=== PATIENT | female | born 1970 | race Caucasian/White ===

== ENCOUNTER 2016-12-22 14:20 | Outpatient (CLI) | payer MEDICAID ==
[2016-12-22 14:50] LABS: BASOPHILS # (AUTO) 0.1 10^3/uL (0.0-0.1); BASOPHILS % (AUTO) 0.9 %; EOSINOPHILS # (AUTO) 0.1 10^3/uL (0.0-0.7); HCT - HEMATOCRIT 37.9 % (37.0-47.0); HGB - HEMOGLOBIN 12.6 g/dL (12.0-16.0); LYMPHOCYTES % (AUTO) 26.9 %; MEAN CORPUSCULAR HEMOGLOBIN 27.7 pg (27.0-31.0); MEAN CORPUSCULAR HGB CONC 33.3 g/dL (32.0-36.0); MEAN CORPUSCULAR VOLUME 83.1 fL (81.0-99.0); MEAN PLATELET VOLUME 8.3 fL (7.9-10.8); MONOCYTES # (AUTO) 0.7 10^3/uL (0.0-1.0); MONOCYTES % (AUTO) 9.4 %; NEUTROPHILS # (AUTO) 4.5 10^3/uL (1.5-6.6); NEUTROPHILS % (AUTO) 61.8 %; RED BLOOD COUNT 4.55 10^6/uL (4.20-5.40); RED CELL DISTRIBUTION WIDTH 15.9 % (12.0-15.0); UNCORRECTED WHITE BLOOD COUNT 7.3 x10^3/uL; WHITE BLOOD COUNT 7.3 x10^3/uL (4.8-10.8)
[2016-12-22 15:06] LABS: HEMOGLOBIN A1C 1.53 g/dL
[2016-12-22 15:07] LABS: ALBUMIN/GLOBULIN RATIO 1.1 (1.0-2.2); BILIRUBIN,TOTAL 0.3 mg/dL (0.2-1.0); BUN - BLOOD UREA NITROGEN 7 mg/dL (6-20); CALCIUM 9.4 mg/dL (8.5-10.3); CARBON DIOXIDE - CO2 27 mmol/L (21-32); CHLORIDE 93 mmol/L (101-111); CHOL/HDL RATIO 4.8 (<4.4); CHOLESTEROL 270 mg/dL; CREATININE 0.7 mg/dL (0.4-1.0); GFR - MDRD 90 (>89); GLUCOSE 283 mg/dL (70-100); HDL CHOLESTEROL 56 mg/dL; POTASSIUM 3.9 mmol/L (3.5-5.0); SODIUM 131 mmol/L (135-145); TOTAL PROTEIN 7.9 g/dL (6.7-8.2); TRIGLYCERIDES 231 mg/dL; VLDL CHOLESTEROL 46 mg/dL
[2016-12-22 15:58] LABS: THYROID STIMULATING HORMONE 1.19 uIU/mL (0.34-5.60)
== END 2016-12-22 14:21 | disposition home or self-care (01) ==
LOC: LAB 14:20
PROVIDERS: ATTEND Nurse Practitioner Family
DX: R63.1 Polydipsia (principal); R03.0 Elevated blood-pressure reading, without diagnosis of hypertension; R42 Dizziness and giddiness; H53.8 Other visual disturbances
CPT/HCPCS: 36415; 80053; 80061; 82607; 83036; 84443; 85025

== ENCOUNTER 2017-06-04 08:00 | Outpatient (CLI) | payer MEDICAID ==
[2017-06-05 11:35] LABS: ALBUMIN 3.7 g/dL (3.2-5.5); ALBUMIN/GLOBULIN RATIO 1.1 (1.0-2.2); BILIRUBIN,TOTAL 0.3 mg/dL (0.2-1.0); CALCIUM 9.4 mg/dL (8.5-10.3); CREATININE 0.6 mg/dL (0.4-1.0); TOTAL PROTEIN 7.1 g/dL (6.7-8.2)
[2017-06-05 11:42] LABS: HB2 TOTAL 13.4 g/dL; HEMOGLOBIN A1C 0.76 g/dL; HEMOGLOBIN A1C % 7.3 % (4.6-6.2)
== END 2017-06-04 08:01 | disposition home or self-care (01) ==
LOC: LAB.S 08:00
PROVIDERS: ATTEND Nurse Practitioner Family
DX: E11.9 Type 2 diabetes mellitus without complications (principal); E67.2 Megavitamin-B6 syndrome
CPT/HCPCS: 36415; 80053; 82607; 83036

== ENCOUNTER 2017-07-09 08:00 | Outpatient (CLI) | payer MEDICAID ==
[2017-07-09 18:12] LABS: AMYLASE 80 U/L (28-100); LIPASE 26 U/L (22-51)
== END 2017-07-09 23:59 ==
LOC: LAB.S 08:00
PROVIDERS: ATTEND Nurse Practitioner Family
DX: R10.12 Left upper quadrant pain (principal)
CPT/HCPCS: 36415; 82150; 83690

== ENCOUNTER 2017-08-06 08:11 | Outpatient (CLI) | payer MEDICAID ==
--- NOTE | 2017-08-06 10:57 | Ultrasound Report ---
COMPLETE ABDOMINAL ULTRASOUND: 08/06/2017 CLINICAL INDICATION: Pain. TECHNIQUE: Real-time scanning was performed with rental representative static images obtained. FINDINGS: The liver measures 16.5 cm. Hepatic echogenicity is normal. No intrahepatic biliary dilatation or focal parenchymal lesion is present. The common bile duct measures 5 mm. The gallbladder is normal, as is the visualized pancreas. The kidneys are normal, with the right measuring 10.5 cm, and the left measuring 10.3 cm. The spleen measures 11.4 cm, and demonstrates normal echotexture. The abdominal aorta is normal in caliber. The inferior vena cava is unremarkable. No free fluid is present. IMPRESSION: NORMAL ABDOMINAL ULTRASOUND. TD: 08/06/2017 10:51
== END 2017-08-06 08:12 | disposition home or self-care (01) ==
LOC: DI 08:11
PROVIDERS: ATTEND Nurse Practitioner Family
DX: R10.12 Left upper quadrant pain (principal)
CPT/HCPCS: 76700

== ENCOUNTER 2017-10-15 13:23 | Outpatient (CLI) | payer MEDICAID ==
[2017-10-15 18:59] LABS: HB2 TOTAL 13.2 g/dL; HEMOGLOBIN A1C 0.61 g/dL; HEMOGLOBIN A1C % 6.4 % (4.6-6.2)
[2017-10-15 19:32] LABS: ALBUMIN 4.1 g/dL (3.2-5.5); ALBUMIN/GLOBULIN RATIO 1.2 (1.0-2.2); ALKALINE PHOSPHATASE 57 IU/L (42-121); ALT ALANINE AMINOTRANSFERASE 16 IU/L (10-60); AST ASPARTATE AMINOTRANSFERASE 19 IU/L (10-42); BILIRUBIN,TOTAL 0.5 mg/dL (0.2-1.0); BUN - BLOOD UREA NITROGEN 10 mg/dL (6-20); CALCIUM 9.2 mg/dL (8.5-10.3); CARBON DIOXIDE - CO2 29 mmol/L (21-32); CHLORIDE 99 mmol/L (101-111); CREATININE 0.6 mg/dL (0.4-1.0); GFR - MDRD 108 (>89); GLUCOSE 68 mg/dL (70-100); SODIUM 137 mmol/L (135-145); TOTAL PROTEIN 7.5 g/dL (6.7-8.2)
== END 2017-10-15 13:24 | disposition home or self-care (01) ==
LOC: LAB.S 13:23
PROVIDERS: ATTEND Nurse Practitioner Family
DX: E11.9 Type 2 diabetes mellitus without complications (principal)
CPT/HCPCS: 36415; 80053; 80061; 82043; 83036; 83721; 84443

== ENCOUNTER 2017-12-07 09:54 | Emergency (ER) | payer MEDICAID ==
[2017-12-07] MEDS ORDERED: SODIUM CHLORIDE 0.9% 1,000 ML IV ONE (10:33)
[2017-12-07 10:53] LABS: BASOPHILS # (AUTO) 0.1 10^3/uL (0.0-0.1); BASOPHILS % (AUTO) 1.3 %; EOSINOPHILS # (AUTO) 0.2 10^3/uL (0.0-0.7); EOSINOPHILS % (AUTO) 2.5 %; HGB - HEMOGLOBIN 13.9 g/dL (12.0-16.0); LYMPHOCYTES # (AUTO) 2.5 10^3/uL (1.5-3.5); LYMPHOCYTES % (AUTO) 26.7 %; MEAN CORPUSCULAR HEMOGLOBIN 27.4 pg (27.0-31.0); MEAN CORPUSCULAR HGB CONC 33.7 g/dL (32.0-36.0); MEAN CORPUSCULAR VOLUME 81.4 fL (81.0-99.0); MEAN PLATELET VOLUME 8.1 fL (7.9-10.8); MONOCYTES # (AUTO) 0.8 10^3/uL (0.0-1.0); MONOCYTES % (AUTO) 8.2 %; NEUTROPHILS # (AUTO) 5.7 10^3/uL (1.5-6.6); NEUTROPHILS % (AUTO) 61.3 %; PLT - PLATELET COUNT 329 10^3/uL (130-450); RED BLOOD COUNT 5.06 10^6/uL (4.20-5.40); RED CELL DISTRIBUTION WIDTH 16.5 % (12.0-15.0); WHITE BLOOD COUNT 9.4 x10^3/uL (4.8-10.8)
[2017-12-07 11:08] LABS: ACETAMINOPHEN < 10 ug/mL (10-30); ALBUMIN/GLOBULIN RATIO 1.1 (1.0-2.2); ALKALINE PHOSPHATASE 67 IU/L (42-121); ALT ALANINE AMINOTRANSFERASE 25 IU/L (10-60); AST ASPARTATE AMINOTRANSFERASE 24 IU/L (10-42); BILIRUBIN,TOTAL 0.4 mg/dL (0.2-1.0); BUN - BLOOD UREA NITROGEN 12 mg/dL (6-20); CALCIUM 9.1 mg/dL (8.5-10.3); CARBON DIOXIDE - CO2 26 mmol/L (21-32); CHLORIDE 102 mmol/L (101-111); CREATININE 0.5 mg/dL (0.4-1.0); GFR - MDRD 133 (>89); GLUCOSE 128 mg/dL (70-100); LIPASE 33 U/L (22-51); SALICYLATE < 6.0 mg/dL; SODIUM 136 mmol/L (135-145); TOTAL PROTEIN 7.5 g/dL (6.7-8.2)
[2017-12-07 11:15] LABS: HCG,QUALITATIVE BLOOD NEGATIVE
[2017-12-07 11:53] LABS: BILIRUBIN,URINE NEGATIVE (NEGATIVE); GLUCOSE, URINE (UA) NEGATIVE (NEGATIVE); KETONES,URINE (UA) NEGATIVE (NEGATIVE); LEUKOCYTE ESTERASE, URINE NEGATIVE (NEGATIVE); MUDS CUTOFF CONCENTRATIONS CUTOFF CONC BELOW:; NITRITE,URINE NEGATIVE (NEGATIVE); OCCULT BLOOD,URINE NEGATIVE (NEGATIVE); PH,URINE 6.5 PH (5.0-7.5); PROTEIN,URINE NEGATIVE (NEGATIVE); UROBILINOGEN,URINE 0.2 (NORMAL) E.U./dL (NORMAL)
[2017-12-07 11:54] LABS: CLARITY,URINE CLEAR (CLEAR)
[2017-12-07 12:03] LABS: AMPHETAMINE SCREEN,URINE NEGATIVE (NEGATIVE); BENZODIAZEPINES SCREEN, URINE NEGATIVE (NEGATIVE); COCAINE SCREEN URINE NEGATIVE (NEGATIVE); METHADONE SCREEN, URINE NEGATIVE (NEGATIVE); METHAMPHETAMINES SCREEN, URINE NEGATIVE (NEGATIVE); OPIATE SCREEN, URINE NEGATIVE (NEGATIVE); OXYCODONE SCREEN, URINE NEGATIVE (NEGATIVE); PROPOXYPHENE SCREEN, URINE NEGATIVE (NEGATIVE); TRICYCLIC ANTIDEPRESSANT,URINE NEGATIVE (NEGATIVE)
--- NOTE | 2017-12-07 12:06 | ED Physician Documentation ---
History of Present Illness - Stated complaint Stated Complaint: MHE - Chief complaint Chief Complaint: MHE - Additonal information Additional information: hx from pt 47 female brought over by [facility] counselor after telepsych eval at office states suicidal tried to kill herself with insulin OD several days ago and cut her L wrist today also voice wanting to kill a coworker - she states just under her breath pt understands she was brought over with plan to be hospitalized she denies fever cough NVD denies hallucinations Review of Systems Constitutional: denies: Fever, Chills Cardiac: denies: Chest pain / pressure Respiratory: denies: Dyspnea GI: denies: Abdominal Pain Skin: reports: Laceration (s) Psychiatric: reports: Depressed, Suicidal, Homicidal. denies: Hallucinations, Delusions Endocrine: denies: Easy bruising / bleeding Immunocompromised: denies: Immunocompromised PD PAST MEDICAL HISTORY - Past Medical History Cardiovascular: None Respiratory: None Endocrine/Autoimmune: Type 2 diabetes GI: None, Other : Incontinence, Nocturia HEENT: None Psych: Depression, Anxiety Musculoskeletal: Fibromyalgia Derm: None - Past Surgical History Past Surgical History: Yes General: Appendectomy - Present Medications Home Medications: Ambulatory Orders Medication Instructions Recorded Confirmed Clonazepam 1 mg PO TID 09/28/12 01/15/17 Divalproex Sodium [Depakote] 500 mg PO BID 05/22/14 01/15/17 Venlafaxine [Effexor] 500 mg PO BID 11/10/14 01/15/17 Omeprazole 20 mg PO DAILY 01/15/17 01/15/17 metFORMIN [Glucophage] 500 mg PO BID 01/15/17 01/15/17 Insulin Glargine [Lantus Solostar] 20 unit SUBQ QDBREAKFAST 07/23/17 07/23/17 Pregabalin [Lyrica] 1 tab PO TID 12/07/17 12/07/17 - Allergies Allergies/Adverse Reactions: Allergies Allergy/AdvReac Type Severity Reaction Status Date / Time tramadol Allergy Mild itch Verified 12/07/17 10:11 - Social History Does the pt smoke?: Yes Smoking Status: Current every day smoker Does the pt drink ETOH?: No Does the pt have substance abuse?: No - Immunizations Immunizations are current?: No Immunizations: TDAP >10years/unknown - POLST Patient has POLST: No PD ED PE NORMAL - Vitals Vital signs reviewed: Yes - Neck Neck: Supple, no meningeal sign - Cardiac Cardiac: RRR - Respiratory Respiratory: No respiratory distress, Clear bilaterally - Abdomen Abdomen: Soft, Non tender - Extremities Extremities: Other (linear lac ant surface mid L wrist, MSV intact, slow ooze, non arterial) - Neuro Neuro: Alert and oriented X 3 - Psych Psych: Other (depressed and suicidal) Results - Vitals Vitals: Vital Signs - 24 hr 12/07/17 12/07/17 12/07/17 10:04 12:17 14:00 Temperature 36.5 C 98.2 C H Heart Rate 122 H 118 H 108 H Respiratory 16 20 Rate Blood Pressure 137/105 H 129/78 118/81 H O2 Saturation 97 98 97 12/07/17 12/07/17 15:57 19:01 Temperature Heart Rate 102 H 87 Respiratory Rate Blood Pressure O2 Saturation 98 98 Oxygen O2 Source Room air - EKG (time done) 1058 Rate: Rate (enter#) (114) Rhythm: Sinus tachycardia Intervals: Normal [place] Ischemia: Normal ST segments - Labs Labs: Laboratory Tests 12/07/17 12/07/17 12/07/17 10:40 10:48 10:48 WBC 9.4 RBC 5.06 Hgb 13.9 Hct 41.2 MCV 81.4 MCH 27.4 MCHC 33.7 RDW 16.5 H Plt Count 329 MPV 8.1 Neut # (Auto) 5.7 Lymph # (Auto) 2.5 [place] # (Auto) 0.8 Eos # (Auto) 0.2 Baso # (Auto) 0.1 Absolute Nucleated RBC 0.00 Nucleated RBC % 0.0 Sodium Potassium Chloride Carbon Dioxide Anion Gap BUN Creatinine Estimated GFR (MDRD) Glucose Calcium Total Bilirubin AST ALT Alkaline Phosphatase Total Protein Albumin Globulin Albumin/Globulin Ratio Lipase TSH Serum HCG, Qual NEGATIVE Urine Color Urine Clarity Urine pH Ur Specific [place] Urine Protein Urine Glucose (UA) Urine Ketones Urine Occult Blood Urine Nitrite Urine Bilirubin Urine Urobilinogen Ur Leukocyte Esterase Ur Microscopic Review Urine Culture Comments Salicylates Urine Opiates Screen Ur Oxycodone Screen Urine Methadone Screen Ur Propoxyphene Screen Acetaminophen Ur Barbiturates Screen Valproic Acid 65.7 Ur Tricyclics Screen Ur Phencyclidine Scrn Ur Amphetamine Screen U Methamphetamines Scrn U Benzodiazepines Scrn Urine Cocaine Screen U Cannabinoids Screen Ethyl Alcohol 12/07/17 12/07/17 12/07/17 10:48 10:48 11:35 WBC RBC Hgb Hct MCV MCH MCHC RDW Plt Count MPV Neut # (Auto) Lymph # (Auto) [place] # (Auto) Eos # (Auto) Baso # (Auto) Absolute Nucleated RBC Nucleated RBC % Sodium 136 Potassium 4.2 Chloride 102 Carbon Dioxide 26 Anion Gap 8.0 BUN 12 Creatinine 0.5 Estimated GFR (MDRD) 133 Glucose 128 H Calcium 9.1 Total Bilirubin 0.4 AST 24 ALT 25 Alkaline Phosphatase 67 Total Protein 7.5 Albumin 4.0 Globulin 3.5 Albumin/Globulin Ratio 1.1 Lipase 33 TSH 1.80 Serum HCG, Qual Urine Color YELLOW Urine Clarity CLEAR Urine pH 6.5 Ur Specific [place] 1.010 Urine Protein NEGATIVE Urine Glucose (UA) NEGATIVE Urine Ketones NEGATIVE Urine Occult Blood NEGATIVE Urine Nitrite NEGATIVE Urine Bilirubin NEGATIVE Urine Urobilinogen 0.2 (NORMAL) Ur Leukocyte Esterase NEGATIVE Ur Microscopic Review NOT INDICATED Urine Culture Comments NOT INDICATED Salicylates < 6.0 Urine Opiates Screen NEGATIVE Ur Oxycodone Screen NEGATIVE Urine Methadone Screen NEGATIVE Ur Propoxyphene Screen NEGATIVE Acetaminophen < 10 L Ur Barbiturates Screen NEGATIVE Valproic Acid Ur Tricyclics Screen NEGATIVE Ur Phencyclidine Scrn NEGATIVE Ur Amphetamine Screen NEGATIVE U Methamphetamines Scrn NEGATIVE U Benzodiazepines Scrn NEGATIVE Urine Cocaine Screen NEGATIVE U Cannabinoids Screen NEGATIVE Ethyl Alcohol < 5.0 PD MEDICAL DECISION MAKING - ED course ED course: labs back, HR coming down wound superficial and just needs a steri strip noon pt medically clear awaiting SW eval 4 PM - [facility] has not seen pt and states their shift is over after much effort obtained [facility] provider note from today but never got the telepsych note so will need to rpt telepscych since SW gone and receiving facilities want a MHE by [facility] or telepscyh turned over to mid shift Dr noble for results of telpsych and placement pt understand she was sent to be admitted, she is cooperative, and so at this time is voluntary - Sepsis Event Vital Signs: Vital Signs - 24 hr 12/07/17 12/07/17 12/07/17 10:04 12:17 14:00 Temperature 36.5 C 98.2 C H Heart Rate 122 H 118 H 108 H Respiratory 16 20 Rate Blood Pressure 137/105 H 129/78 118/81 H O2 Saturation 97 98 97 12/07/17 12/07/17 15:57 19:01 Temperature Heart Rate 102 H 87 Respiratory Rate Blood Pressure O2 Saturation 98 98 Oxygen O2 Source Room air Departure - Departure Clinical Impression: Suicidal ideation, Laceration - injury, Self-harming behavior Drug overdose Qualifiers: Encounter type: initial encounter Injury intent: intentional self-harm Qualified Code(s): T50.902A - Poisoning by unspecified drugs, medicaments and biological substances, intentional self-harm, initial encounter
[2017-12-07 19:33] LABS: VALPROIC ACID (DEPAKOTE) 65.7 ug/mL
--- NOTE | 2017-12-07 21:33 | TELEPSYCH PHYS NOTE ---
Telepsych Note - CHIEF COMPLAINT/HX OF PRESENT ILLNESS Cheif Complaint and History of Present Illness: Chief Complaint: "Jennifer been really upset." HPI: The patient is a 47-year-old female with a history of depression. After attempting suicide a few days ago. The patient tried to overdose on insulin. She reports several stressors including financial difficulties, problems with coworkers, and difficulty moving out of her mother's home. The patient reports that the last straw for her was when she learned that her job had decreased her hours which will make it more difficult for her to save up to move out. She continues report suicidal thoughts. She is been experiencing poor sleep, poor appetite, and feelings of hopelessness. - SI/HI/SELF HARM SI/HI/SELF HARM (CURRENT OR HISTORY OF):: SI - VIOLENCE/LEGAL/COLLATERAL Violence - Legal - Collateral: Violence: none Legal: none Collateral: n/a - PSYCHIATRIC HX/TREATMENT HX Psychiatric: Depression, Anxiety Psychiatric/Treatment Hx Other: Past Psychiatric History: One prior inpatient admission in 2013 after dad passed. Current outpatient treatment-Dr. Ap Sanchez (private psychiatrist). 2 prior suicide attempts. - DRUG/ALCOHOL HX Substance use/abuse/alcohol text: Alcohol-sober 5 years - MEDICAL HX Does the pt have a hx of MRSA?: No Eyes, Ears, Nose, Throat: None Cardiovascular: None Respiratory: None Skin: None Endocrine/Autoimmune: Type 2 diabetes Gastrointestinal: None, Other Is Patient ?: No Urinary: Incontinence, Nocturia Musculoskeletal: Fibromyalgia Blood Disorders: None - SURGICAL HX General: Appendectomy - HOME MEDICATIONS Home Meds (as last confirmed): Patient History Medication Instructions Recorded Confirmed Clonazepam 1 mg PO TID 09/28/12 01/15/17 Divalproex Sodium [Depakote] 500 mg PO BID 05/22/14 01/15/17 Venlafaxine [Effexor] 500 mg PO BID 11/10/14 01/15/17 Omeprazole 20 mg PO DAILY 01/15/17 01/15/17 metFORMIN [Glucophage] 500 mg PO BID 01/15/17 01/15/17 Insulin Glargine [Lantus Solostar] 20 unit SUBQ QDBREAKFAST 07/23/17 07/23/17 Pregabalin [Lyrica] 1 tab PO TID 12/07/17 12/07/17 - ALLERGIES Allergies (as last confirmed): Allergies Allergy/AdvReac Type Severity Reaction Status Date / Time tramadol Allergy Mild itch Verified 12/07/17 10:11 - FAMILY PSYCH/SUICIDE/SOCIAL HX-MENTAL Family - Suicide - Social Hx and Mental Status Exam: Family Psychiatric History: adopted Social History: single, lives with mother and 31 yo brother 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 [employer] Education: HS grad, college grad Stressors: see HPI History: none Abuse: none Mental Status Examination: Attitude and behavior: cooperative Speech: WNL Affect and mood: sad affect and mood Association and thought processes: disorganized Thought content: no delusions, + SI, no HI Perception: no hallucinations Sensorium, memory, and orientation: AAOx3 Intellectual functioning: average Insight and judgment: poor - PATIENT PROBLEM LIST (1) Major depressive disorder, recurrent severe without psychotic features Impression: The patient is a 47-year-old female with a history of Depressive. She is currently unstable with depressed mood and SI. Patient is not safe for discharge. Refer to inpatient care. Patient is agreeable to inpatient care. - TREATMENT/PHARMACOLOGICAL RECOMMENDATION Treatment - Pharmacological - Therapy Recommendations: Treatment Recommendations: Admit to inpatient care, start medications Pharmacological: continue psych meds Therapy: supportive Level of Care: inpatient - TIME SPENT & PROVIDER LOCATION Telepsych consultation conducted via videoconferencing: Yes List names and roles of persons who participated in consult: Gm Dwyer MD- psychiatrist Telepsych Provider Location: [place] Time Telepsych consult began: 22:50 Time Telepsych consult completed: 23:10
[2017-12-08] MEDS ORDERED: metFORMIN 500 MG TABLET PO STA (08:31)
[2017-12-08] MEDS ORDERED: clonazePAM 0.5 MG TABLET PO STA (08:33)
[2017-12-08] MEDS ORDERED: PREGABALIN 25 MG CAPSULE PO STA (08:34)
[2017-12-08 08:35] VITALS: BP 117/81
[2017-12-08] MEDS ORDERED: VENLAFAXINE 37.5 MG TABLET PO STA (08:35)
[2017-12-08] MEDS ORDERED: INSULIN GLARGINE 300 UNIT/3 ML PEN SUBQ SCH (09:00)
--- NOTE | 2017-12-08 09:12 | ED Physician Documentation ---
History of Present Illness - Stated complaint Stated Complaint: MHE - Chief complaint Chief Complaint: MHE PD PAST MEDICAL HISTORY - Past Medical History Cardiovascular: None Respiratory: None Endocrine/Autoimmune: Type 2 diabetes GI: None, Other : Incontinence, Nocturia HEENT: None Psych: Depression, Anxiety Musculoskeletal: Fibromyalgia Derm: None - Past Surgical History Past Surgical History: Yes General: Appendectomy - Present Medications Home Medications: Ambulatory Orders Medication Instructions Recorded Confirmed RX: Clonazepam 1 mg PO TID 09/28/12 01/15/17 Divalproex Sodium [Depakote] 500 mg PO BID 05/22/14 01/15/17 RX: Venlafaxine [Effexor] 500 mg PO BID 11/10/14 01/15/17 RX: Omeprazole 20 mg PO DAILY 01/15/17 01/15/17 metFORMIN [Glucophage] 500 mg PO BID 01/15/17 01/15/17 Insulin Glargine [Lantus Solostar] 20 unit SUBQ QDBREAKFAST 07/23/17 07/23/17 Pregabalin [Lyrica] 1 tab PO TID 12/07/17 12/07/17 - Allergies Allergies/Adverse Reactions: Allergies Allergy/AdvReac Type Severity Reaction Status Date / Time tramadol Allergy Mild itch Verified 12/07/17 10:11 - Social History Does the pt smoke?: Yes Smoking Status: Current every day smoker Does the pt drink ETOH?: No Does the pt have substance abuse?: No - Immunizations Immunizations are current?: No Immunizations: TDAP >10years/unknown - POLST Patient has POLST: No Results - Vitals Vitals: Vital Signs - 24 hr 12/07/17 12/08/17 12/08/17 21:38 04:16 06:21 Temperature Heart Rate 89 Respiratory 16 14 13 Rate Blood Pressure 117/85 H O2 Saturation 95 12/08/17 08:35 Temperature 36.4 C L Heart Rate 94 Respiratory 17 Rate Blood Pressure 117/81 H O2 Saturation 99 Oxygen O2 Source Room air - Labs Labs: Laboratory Tests 12/07/17 12/07/17 12/07/17 10:40 10:48 10:48 WBC 9.4 RBC 5.06 Hgb 13.9 Hct 41.2 MCV 81.4 MCH 27.4 MCHC 33.7 RDW 16.5 H Plt Count 329 MPV 8.1 Neut # (Auto) 5.7 Lymph # (Auto) 2.5 [place] # (Auto) 0.8 Eos # (Auto) 0.2 Baso # (Auto) 0.1 Absolute Nucleated RBC 0.00 Nucleated RBC % 0.0 Sodium Potassium Chloride Carbon Dioxide Anion Gap BUN Creatinine Estimated GFR (MDRD) Glucose POC Whole Bld Glucose Calcium Total Bilirubin AST ALT Alkaline Phosphatase Total Protein Albumin Globulin Albumin/Globulin Ratio Lipase TSH Serum HCG, Qual NEGATIVE Urine Color Urine Clarity Urine pH Ur Specific [place] Urine Protein Urine Glucose (UA) Urine Ketones Urine Occult Blood Urine Nitrite Urine Bilirubin Urine Urobilinogen Ur Leukocyte Esterase Ur Microscopic Review Urine Culture Comments Last Dose Date UNKNOWN Last Dose Time UNKNOWN Salicylates Urine Opiates Screen Ur Oxycodone Screen Urine Methadone Screen Ur Propoxyphene Screen Acetaminophen Ur Barbiturates Screen Valproic Acid 65.7 Ur Tricyclics Screen Ur Phencyclidine Scrn Ur Amphetamine Screen U Methamphetamines Scrn U Benzodiazepines Scrn Urine Cocaine Screen U Cannabinoids Screen Ethyl Alcohol 12/07/17 12/07/17 12/07/17 10:48 10:48 11:35 WBC RBC Hgb Hct MCV MCH MCHC RDW Plt Count MPV Neut # (Auto) Lymph # (Auto) [place] # (Auto) Eos # (Auto) Baso # (Auto) Absolute Nucleated RBC Nucleated RBC % Sodium 136 Potassium 4.2 Chloride 102 Carbon Dioxide 26 Anion Gap 8.0 BUN 12 Creatinine 0.5 Estimated GFR (MDRD) 133 Glucose 128 H POC Whole Bld Glucose Calcium 9.1 Total Bilirubin 0.4 AST 24 ALT 25 Alkaline Phosphatase 67 Total Protein 7.5 Albumin 4.0 Globulin 3.5 Albumin/Globulin Ratio 1.1 Lipase 33 TSH 1.80 Serum HCG, Qual Urine Color YELLOW Urine Clarity CLEAR Urine pH 6.5 Ur Specific [place] 1.010 Urine Protein NEGATIVE Urine Glucose (UA) NEGATIVE Urine Ketones NEGATIVE Urine Occult Blood NEGATIVE Urine Nitrite NEGATIVE Urine Bilirubin NEGATIVE Urine Urobilinogen 0.2 (NORMAL) Ur Leukocyte Esterase NEGATIVE Ur Microscopic Review NOT INDICATED Urine Culture Comments NOT INDICATED Last Dose Date Last Dose Time Salicylates < 6.0 Urine Opiates Screen NEGATIVE Ur Oxycodone Screen NEGATIVE Urine Methadone Screen NEGATIVE Ur Propoxyphene Screen NEGATIVE Acetaminophen < 10 L Ur Barbiturates Screen NEGATIVE Valproic Acid Ur Tricyclics Screen NEGATIVE Ur Phencyclidine Scrn NEGATIVE Ur Amphetamine Screen NEGATIVE U Methamphetamines Scrn NEGATIVE U Benzodiazepines Scrn NEGATIVE Urine Cocaine Screen NEGATIVE U Cannabinoids Screen NEGATIVE Ethyl Alcohol < 5.0 12/08/17 12/08/17 08:30 12:23 WBC RBC Hgb Hct MCV MCH MCHC RDW Plt Count MPV Neut # (Auto) Lymph # (Auto) [place] # (Auto) Eos # (Auto) Baso # (Auto) Absolute Nucleated RBC Nucleated RBC % Sodium Potassium Chloride Carbon Dioxide Anion Gap BUN Creatinine Estimated GFR (MDRD) Glucose POC Whole Bld Glucose 160 H 113 H Calcium Total Bilirubin AST ALT Alkaline Phosphatase Total Protein Albumin Globulin Albumin/Globulin Ratio Lipase TSH Serum HCG, Qual Urine Color Urine Clarity Urine pH Ur Specific [place] Urine Protein Urine Glucose (UA) Urine Ketones Urine Occult Blood Urine Nitrite Urine Bilirubin Urine Urobilinogen Ur Leukocyte Esterase Ur Microscopic Review Urine Culture Comments Last Dose Date Last Dose Time Salicylates Urine Opiates Screen Ur Oxycodone Screen Urine Methadone Screen Ur Propoxyphene Screen Acetaminophen Ur Barbiturates Screen Valproic Acid Ur Tricyclics Screen Ur Phencyclidine Scrn Ur Amphetamine Screen U Methamphetamines Scrn U Benzodiazepines Scrn Urine Cocaine Screen U Cannabinoids Screen Ethyl Alcohol PD MEDICAL DECISION MAKING - ED course ED course: resumed care 7 AM 12/08 pt had another telepsych inpt care rec pt voluntary placed by plant operator/shift supervisor nursing at [facility] EMS arrnaged per turn over [facility] req Medicaid auth and [facility] is working on that process - see [facility] notes pt daily meds (that are formulary) ordered no acute events - Sepsis Event Vital Signs: Vital Signs - 24 hr 12/07/17 12/08/17 12/08/17 21:38 04:16 06:21 Temperature Heart Rate 89 Respiratory 16 14 13 Rate Blood Pressure 117/85 H O2 Saturation 95 12/08/17 08:35 Temperature 36.4 C L Heart Rate 94 Respiratory 17 Rate Blood Pressure 117/81 H O2 Saturation 99 Oxygen O2 Source Room air Departure - Departure Disposition: 65 Psych Hosp/Unit DC/Xfer Clinical Impression: Suicidal ideation, Laceration - injury, Self-harming behavior, Drug overdose Discharge Date/Time: 12/08/17 13:10
== END 2017-12-08 13:10 ==
LOC: ED 09:54
DX: T14.91XA Suicide attempt, initial encounter (principal); T38.3X2A Poisoning by insulin and oral hypoglycemic [antidiabetic] drugs, intentional self-harm, initial encounter; S61.512A Laceration without foreign body of left wrist, initial encounter; F32.9 Major depressive disorder, single episode, unspecified; X78.9XXA Intentional self-harm by unspecified sharp object, initial encounter; E11.9 Type 2 diabetes mellitus without complications; R00.0 Tachycardia, unspecified; F17.200 Nicotine dependence, unspecified, uncomplicated; Z79.4 Long term (current) use of insulin; Z91.5 Personal history of self-harm; F10.21 Alcohol dependence, in remission
CPT/HCPCS: 36415; 80053; 80164; 80306; 80307; 80320; 80329; 81003; 83690; 84443; 84703; 85025; 93005; 99284; 99285; A9270; G0425; J1815; Q3014; 81001; 87086

== ENCOUNTER 2018-01-10 12:30 | Outpatient (CLI) | payer MEDICAID ==
--- NOTE | 2018-01-11 10:16 | XRAY Report ---
Reason: FOOT JOINT PAIN,LEFT Procedure Date: 01/10/2018 Accession Number: [id number] / [id number] Procedure: XR - Foot 3 View LT CPT Code: FULL RESULT: EXAM: LEFT FOOT RADIOGRAPHY EXAM DATE: 01/10/2018 01:17 PM. CLINICAL HISTORY: Left foot pain. Rolled foot 14 days ago. Complaining of pain lateral side of foot. COMPARISON: 08/01/2013. TECHNIQUE: 3 views. FINDINGS: Bones: No acute fracture or bony lesion. Bipartite lateral sesamoid again seen. No bony erosions or periosteal reaction. Small plantar calcaneal spur again seen. Well corticated calcification on the tip of the fibula unchanged likely the result of prior trauma or accessory ossicle. Joints: Mild degenerative changes of the left first MTP and left midfoot. No dislocation. Soft Tissues: Normal. No soft tissue swelling. IMPRESSION: 1. No acute osseous abnormalities. RADIA
== END 2018-01-10 12:31 | disposition home or self-care (01) ==
LOC: DI 12:30
PROVIDERS: ATTEND Nurse Practitioner Family
DX: M79.672 Pain in left foot (principal)

== ENCOUNTER 2018-01-21 09:18 | Outpatient (CLI) | payer MEDICAID ==
[2018-01-21 18:24] LABS: BASOPHILS # (AUTO) 0.1 10^3/uL (0.0-0.1); BASOPHILS % (AUTO) 0.7 %; EOSINOPHILS # (AUTO) 0.1 10^3/uL (0.0-0.7); EOSINOPHILS % (AUTO) 1.8 %; HGB - HEMOGLOBIN 13.4 g/dL (12.0-16.0); LYMPHOCYTES % (AUTO) 27.6 %; MEAN CORPUSCULAR HEMOGLOBIN 27.3 pg (27.0-31.0); MEAN CORPUSCULAR HGB CONC 32.6 g/dL (32.0-36.0); MEAN CORPUSCULAR VOLUME 83.8 fL (81.0-99.0); MONOCYTES # (AUTO) 0.6 10^3/uL (0.0-1.0); MONOCYTES % (AUTO) 8.3 %; NEUTROPHILS # (AUTO) 4.4 10^3/uL (1.5-6.6); NEUTROPHILS % (AUTO) 61.6 %; PLT - PLATELET COUNT 334 10^3/uL (130-450); RED BLOOD COUNT 4.89 10^6/uL (4.20-5.40); RED CELL DISTRIBUTION WIDTH 16.7 % (12.0-15.0); WHITE BLOOD COUNT 7.2 x10^3/uL (4.8-10.8)
[2018-01-21 19:09] LABS: BUN - BLOOD UREA NITROGEN 15 mg/dL (6-20); CARBON DIOXIDE - CO2 27 mmol/L (21-32); CHLORIDE 104 mmol/L (101-111); CHOL/HDL RATIO 5.4 (<4.4); CHOLESTEROL 233 mg/dL; CREATININE 0.5 mg/dL (0.4-1.0); GFR - MDRD 133 (>89); GLUCOSE 101 mg/dL (70-100); HDL CHOLESTEROL 43 mg/dL; LDL CHOLESTEROL,CALCULATED 155 mg/dL; LDL/HDL RATIO 3.6 (<4.4); SODIUM 138 mmol/L (135-145); VLDL CHOLESTEROL 35 mg/dL
[2018-01-21 19:36] LABS: HB2 TOTAL 13.8 g/dL; HEMOGLOBIN A1C 0.64 g/dL; HEMOGLOBIN A1C % 6.4 % (4.6-6.2)
== END 2018-01-21 09:19 | disposition home or self-care (01) ==
LOC: LAB.F 09:18
PROVIDERS: ATTEND Nurse Practitioner Family
DX: E11.9 Type 2 diabetes mellitus without complications (principal); E78.5 Hyperlipidemia, unspecified
CPT/HCPCS: 36415; 80048; 80061; 83036; 83721; 85025

== ENCOUNTER 2018-06-17 08:00 | Outpatient (CLI) | payer MEDICAID ==
[2018-06-17 18:24] LABS: BUN - BLOOD UREA NITROGEN 13 mg/dL (6-20); CALCIUM 9.2 mg/dL (8.5-10.3); CARBON DIOXIDE - CO2 25 mmol/L (21-32); CHLORIDE 104 mmol/L (101-111); CHOL/HDL RATIO 4.9 (<4.4); CHOLESTEROL 217 mg/dL; CREATININE 0.5 mg/dL (0.4-1.0); GFR - MDRD 133 (>89); GLUCOSE 166 mg/dL (70-100); HDL CHOLESTEROL 44 mg/dL; LDL CHOLESTEROL,CALCULATED 146 mg/dL; LDL/HDL RATIO 3.3 (<4.4); SODIUM 137 mmol/L (135-145); VLDL CHOLESTEROL 27 mg/dL
[2018-06-17 18:59] LABS: HB2 TOTAL 12.8 g/dL; HEMOGLOBIN A1C 0.79 g/dL; HEMOGLOBIN A1C % 7.8 % (4.6-6.2)
== END 2018-06-17 23:59 | disposition home or self-care (01) ==
LOC: LAB.S 08:00
PROVIDERS: ATTEND Nurse Practitioner
DX: E11.9 Type 2 diabetes mellitus without complications (principal)
CPT/HCPCS: 36415; 80048; 80061; 83036; 83721

== ENCOUNTER 2019-01-21 13:47 | Outpatient (CLI) | payer MEDICAID ==
[2019-01-21 17:41] LABS: HB2 TOTAL 11.9 g/dL; HEMOGLOBIN A1C 0.61 g/dL; HEMOGLOBIN A1C % 6.8 % (4.6-6.2)
[2019-01-21 17:51] LABS: CREATININE,URINE 104.7 mg/dL; MICROALBUM/CREATININE RATIO,UR 12.4 ug/mg (<30.0); MICROALBUMIN,URINE 1.3 mg/dL (0-300.0)
== END 2019-01-21 13:48 | disposition home or self-care (01) ==
LOC: LAB.S 13:47
PROVIDERS: ATTEND Registered Nurse
DX: E11.9 Type 2 diabetes mellitus without complications (principal)
CPT/HCPCS: 36415; 82043; 82570; 83036

== ENCOUNTER 2019-05-10 13:14 | Emergency (ER) | payer MEDICAID ==
--- NOTE | 2019-05-10 14:20 | XRAY Report ---
Reason: cough Procedure Date: 05/10/2019 Accession Number: [id number] / [id number] Procedure: XR - Chest 2 View X-Ray CPT Code: 46859 Final Report FULL RESULT: EXAM: CHEST RADIOGRAPHY EXAM DATE: 05/10/2019 01:56 PM. CLINICAL HISTORY: Cough. COMPARISON: 04/21/2014 radiograph. TECHNIQUE: 2 views. FINDINGS: Lungs/Pleura: No focal opacities evident. No pleural effusion. No pneumothorax. Normal volumes. Mediastinum: Heart size is normal. Arterial calcifications indicate atherosclerosis. Other: None. IMPRESSION: No acute findings. RADIA
[2019-05-10] MEDS ORDERED: IPRATROPIUM/ALBUTEROL 3 ML NEB INH STA (16:25)
--- NOTE | 2019-05-10 16:25 | ED Physician Documentation ---
PD HPI DYSPNEA - Stated complaint Stated Complaint: SOA - Chief complaint Chief Complaint: Resp - History obtained from History obtained from: Patient, Family - History of Present Illness Timing - onset: How many days ago (5) Timing - onset during: Rest Timing - duration: Days (5), Weeks Timing - details: Gradual onset, Still present Inciting event(s): Allergic rxn/anaphylaxis Improved by: Inhaler/neb, Steroids Worsened by: Exertion, Coughing Associated symptoms: Cough, Wheezing. No: Fever, Hemoptysis, Chest pain / discomfort Similar symptoms before: Diagnosis (asthma) Recently seen: Not recently seen Review of Systems Constitutional: denies: Fever Eyes: denies: Decreased vision Ears: denies: Ear pain Nose: denies: Rhinorrhea / runny nose, Congestion Throat: denies: Sore throat Cardiac: denies: Chest pain / pressure, Palpitations Respiratory: reports: Dyspnea, Cough, Wheezing GI: denies: Abdominal Pain, Nausea, Vomiting : denies: Dysuria, Frequency Skin: denies: Rash Musculoskeletal: denies: Neck pain, Back pain, Extremity pain Neurologic: denies: Generalized weakness, Focal weakness, Numbness PD PAST MEDICAL HISTORY - Past Medical History Cardiovascular: None Respiratory: Asthma Endocrine/Autoimmune: Type 2 diabetes GI: None, Other : Incontinence, Nocturia HEENT: None Psych: Depression, Anxiety Musculoskeletal: Fibromyalgia Derm: None - Past Surgical History Past Surgical History: Yes General: Appendectomy - Present Medications Home Medications: Ambulatory Orders Medication Instructions Recorded Confirmed Clonazepam 1 mg PO TID 09/28/12 01/15/17 Divalproex Sodium [Depakote] 500 mg PO BID 05/22/14 01/15/17 Venlafaxine [Effexor] 500 mg PO BID 11/10/14 01/15/17 Omeprazole 20 mg PO DAILY 01/15/17 01/15/17 metFORMIN [Glucophage] 500 mg PO BID 01/15/17 01/15/17 Insulin Glargine [Lantus Solostar] 20 unit SUBQ QDBREAKFAST 07/23/17 07/23/17 Pregabalin [Lyrica] 1 tab PO TID 12/07/17 12/07/17 Albuterol 2.5 mg INH Q4H PRN #30 neb 05/10/19 Azithromycin [Zithromax] 250 mg PO DAILY #6 tablet 05/10/19 Fluconazole [Diflucan] 150 mg PO ONCE #1 tablet 05/10/19 predniSONE [Deltasone] 10 mg PO ONCE #26 tablet 05/10/19 - Allergies Allergies/Adverse Reactions: Allergies Allergy/AdvReac Type Severity Reaction Status Date / Time tramadol Allergy Mild itch Verified 05/10/19 13:35 - Social History Does the pt smoke?: Yes Smoking Status: Current every day smoker Does the pt drink ETOH?: Yes Does the pt have substance abuse?: No - Immunizations Immunizations are current?: No Immunizations: TDAP >10years/unknown - POLST Patient has POLST: No PD ED PE NORMAL - Vitals Vital signs reviewed: Yes (tachy and hypertensive) - General General: Alert and oriented X 3, Well developed/nourished, Other (looks tachyneic at rest with pursed lips ) - HEENT HEENT: Atraumatic, PERRL - Neck Neck: Supple, no meningeal sign, No bony TTP - Cardiac Cardiac: RRR, No murmur - Respiratory Respiratory: Other (Tachypneic at rest with diminished breath sounds and scattered wheezes.) - Abdomen Abdomen: Soft - Back Back: No CVA TTP, No spinal TTP - Derm Derm: Normal color, Warm and dry, No rash - Extremities Extremities: No deformity, No edema - Neuro Neuro: Alert and oriented X 3, offset second press operator 2-12 intact, No motor deficit, No sensory deficit, Normal speech Eye Opening: Spontaneous Motor: Obeys Commands Verbal: Oriented GCS Score: 15 - Psych Psych: Normal mood, Normal affect Results - Vitals Vitals: Vital Signs - 24 hr 05/10/19 05/10/19 13:35 16:42 Temperature 36.6 C Heart Rate 125 H 118 H Respiratory 18 18 Rate Blood Pressure 171/118 H O2 Saturation 98 Oxygen O2 Source Room air - Rads (name of study) chest Radiology: Prelim report reviewed (IMPRESSION: No acute findings. ), EMP read indepedently, See rad report PD MEDICAL DECISION MAKING - ED course Complexity details: reviewed results, re-evaluated patient, considered differential, d/w patient, d/w family ED course: 48-year-old female with history of persistent asthma has an asthma exacerbation she has not improved with 2 days of prednisone at 30mg daily. She likely needs a much stronger dose of prednisone and she is given a DuoNeb treatment here in the emergency department and we will start her on a regimen of 60/day for 2 days followed by 40,20 and 10. Departure - Departure Disposition: 01 Home, Self Care Clinical Impression: Asthma exacerbation Qualifiers: Asthma severity: moderate Asthma persistence: persistent Qualified Code(s): J45.41 - Moderate persistent asthma with (acute) exacerbation Condition: Stable Instructions: ED Bronchitis Asthmatic Follow-Up: Mya Carroll ARNP [Primary Care Provider] - Prescriptions: Albuterol 2.5 mg INH Q4H PRN #30 neb PRN Reason: Wheezing Azithromycin [Zithromax] 250 mg PO DAILY #6 tablet Fluconazole [Diflucan] 150 mg PO ONCE #1 tablet predniSONE [Deltasone] 10 mg PO ONCE #26 tablet Forms: Activity restrictions
[2019-05-10 16:55] VITALS: BP 179/103
== END 2019-05-10 16:54 | disposition home or self-care (01) ==
LOC: ED 13:14
DX: J45.41 Moderate persistent asthma with (acute) exacerbation (principal); F17.200 Nicotine dependence, unspecified, uncomplicated; E11.9 Type 2 diabetes mellitus without complications; M79.7 Fibromyalgia; F32.9 Major depressive disorder, single episode, unspecified; F41.9 Anxiety disorder, unspecified; R32 Unspecified urinary incontinence; R35.1 Nocturia; Z79.4 Long term (current) use of insulin; Z79.51 Long term (current) use of inhaled steroids; Z79.52 Long term (current) use of systemic steroids
CPT/HCPCS: 71046; 94640; 99283; 99284

== ENCOUNTER 2019-06-08 23:49 | Outpatient (CLI) | payer MEDICAID | END 2019-06-08 23:50 | disposition critical access hospital (66) | LOC: EMS 23:49 | PROVIDERS: ATTEND Surgery | DX: R45.851 Suicidal ideations (principal) | CPT/HCPCS: A0425; A0429; A0999 ==

== ENCOUNTER 2019-06-09 00:26 | Emergency (ER) | payer MEDICAID ==
--- NOTE | 2019-06-09 00:33 | ED Physician Documentation ---
<СергейgeraldKonrad - Last Filed: 06/09/19 06:42> History of Present Illness - Stated complaint Stated Complaint: ETOH, SI - History obtained from History obtained from: Patient (the patient is a 48 y/o f who presents involuntarily via ems for suicidal behavior and alcohol intoxication. patient has been more depressed and had plans to commit suicide tonight.) Review of Systems Unable to obtain: Intoxicated PD PAST MEDICAL HISTORY - Past Medical History Cardiovascular: None Respiratory: Asthma Endocrine/Autoimmune: Type 2 diabetes GI: None, Other : Incontinence, Nocturia HEENT: None Psych: Depression, Anxiety Musculoskeletal: Fibromyalgia Derm: None - Past Surgical History Past Surgical History: Yes General: Appendectomy - Present Medications Home Medications: Ambulatory Orders Medication Instructions Recorded Confirmed Clonazepam 1 mg PO TID 09/28/12 01/15/17 Divalproex Sodium [Depakote] 500 mg PO BID 05/22/14 01/15/17 Venlafaxine [Effexor] 500 mg PO BID 11/10/14 01/15/17 Omeprazole 20 mg PO DAILY 01/15/17 01/15/17 metFORMIN [Glucophage] 500 mg PO BID 01/15/17 01/15/17 Insulin Glargine [Lantus Solostar] 20 unit SUBQ QDBREAKFAST 07/23/17 07/23/17 Pregabalin [Lyrica] 1 tab PO TID 12/07/17 12/07/17 Albuterol 2.5 mg INH Q4H PRN #30 neb 05/10/19 Azithromycin [Zithromax] 250 mg PO DAILY #6 tablet 05/10/19 Fluconazole [Diflucan] 150 mg PO ONCE #1 tablet 05/10/19 predniSONE [Deltasone] 10 mg PO ONCE #26 tablet 05/10/19 - Allergies Allergies/Adverse Reactions: Allergies Allergy/AdvReac Type Severity Reaction Status Date / Time tramadol Allergy Mild itch Verified 05/10/19 13:35 - Social History Does the pt smoke?: Yes Smoking Status: Current every day smoker Does the pt drink ETOH?: Yes Does the pt have substance abuse?: No - Immunizations Immunizations are current?: No Immunizations: TDAP >10years/unknown - POLST Patient has POLST: No PD ED PE NORMAL - Vitals Vital signs reviewed: Yes - General General: Alert and oriented X 3, No acute distress - HEENT HEENT: PERRL - Neck Neck: Supple, no meningeal sign - Cardiac Cardiac: RRR, No murmur - Respiratory Respiratory: Clear bilaterally - Abdomen Abdomen: Normal bowel sounds, Soft, Non tender, Non distended - Derm Derm: Warm and dry - Extremities Extremities: No deformity - Neuro Neuro: Alert and oriented X 3 - Psych Psych: Other (depressed, flat affect, intoxicated.) Results - EKG (time done) 00:57 Rate: Other (no stemi) PD MEDICAL DECISION MAKING - ED course Complexity details: re-evaluated patient (06:43 patient revaluated. clinically sober, DMHP consulted for intermediate as patient is involuntary. ), considered differential (etoh intoxication, suicidal behavior, plan is for medical clearance and DMHP evaluation), other (07:00 patient signed out at shift change to dr. lilly peña.) Departure - Departure Disposition: 01 Home, Self Care Clinical Impression: Suicidal ideation Alcoholic intoxication Qualifiers: Complication of substance-induced condition: with unspecified complication Qualified Code(s): F10.929 - Alcohol use, unspecified with intoxication, unspecified Condition: Stable Instructions: ED Alcohol Intoxication Follow-Up: Mya Carroll ARNP [Primary Care Provider] - Comments: Keep the arranged follow-up with [facility] on Sunday at 4 PM. They should also call and check on you tomorrow. Stop drinking. Return to the emergency department if you are having thoughts of harming yourself. <Lilly Peña - Last Filed: 06/09/19 13:48> Results - Vitals Vitals: Vital Signs - 24 hr 06/09/19 06/09/19 06/09/19 00:36 00:38 07:37 Temperature 36.4 C L 36.8 C Heart Rate 99 98 107 H Respiratory 20 16 Rate Blood Pressure 130/80 143/83 H O2 Saturation 98 98 96 Oxygen O2 Source Room air - Labs Labs: Laboratory Tests 06/09/19 06/09/19 06/09/19 00:30 00:30 01:40 WBC RBC Hgb Hct MCV MCH MCHC RDW Plt Count MPV Neut # (Auto) Lymph # (Auto) [place] # (Auto) Eos # (Auto) Baso # (Auto) Absolute Nucleated RBC Nucleated RBC % Sodium 143 Potassium 3.1 L Chloride 105 Carbon Dioxide 24 Anion Gap 14.0 H BUN 9 Creatinine 0.7 Estimated GFR (MDRD) 90 Glucose 98 Calcium 9.0 Total Bilirubin 0.6 AST 28 ALT 27 Alkaline Phosphatase 64 Total Protein 7.3 Albumin 4.4 Globulin 2.9 Albumin/Globulin Ratio 1.5 Lipase 27 TSH Urine Color YELLOW Urine Clarity CLEAR Urine pH 6.0 Ur Specific [place] <=1.005 Urine Protein NEGATIVE Urine Glucose (UA) NEGATIVE Urine Ketones NEGATIVE Urine Occult Blood NEGATIVE Urine Nitrite NEGATIVE Urine Bilirubin NEGATIVE Urine Urobilinogen 0.2 (NORMAL) Ur Leukocyte Esterase NEGATIVE Ur Microscopic Review NOT INDICATED Urine Culture Comments NOT INDICATED Urine HCG, Qual NEGATIVE Salicylates < 6.0 Urine Opiates Screen NEGATIVE Ur Oxycodone Screen NEGATIVE Urine Methadone Screen NEGATIVE Ur Propoxyphene Screen NEGATIVE Acetaminophen < 10 L Ur Barbiturates Screen NEGATIVE Ur Tricyclics Screen NEGATIVE Ur Phencyclidine Scrn NEGATIVE Ur Amphetamine Screen NEGATIVE U Methamphetamines Scrn NEGATIVE U Benzodiazepines Scrn NEGATIVE Urine Cocaine Screen NEGATIVE U Cannabinoids Screen NEGATIVE Ethyl Alcohol 209.9 06/09/19 06/09/19 06/09/19 01:40 01:40 06:30 WBC 7.1 RBC 4.73 Hgb 13.0 Hct 40.5 MCV 85.6 MCH 27.5 MCHC 32.1 RDW 15.5 H Plt Count 386 MPV 9.8 Neut # (Auto) 4.3 Lymph # (Auto) 2.1 [place] # (Auto) 0.5 Eos # (Auto) 0.1 Baso # (Auto) 0.1 Absolute Nucleated RBC 0.00 Nucleated RBC % 0.0 Sodium Potassium Chloride Carbon Dioxide Anion Gap BUN Creatinine Estimated GFR (MDRD) Glucose Calcium Total Bilirubin AST ALT Alkaline Phosphatase Total Protein Albumin Globulin Albumin/Globulin Ratio Lipase TSH 0.96 Urine Color Urine Clarity Urine pH Ur Specific [place] Urine Protein Urine Glucose (UA) Urine Ketones Urine Occult Blood Urine Nitrite Urine Bilirubin Urine Urobilinogen Ur Leukocyte Esterase Ur Microscopic Review Urine Culture Comments Urine HCG, Qual Salicylates Urine Opiates Screen Ur Oxycodone Screen Urine Methadone Screen Ur Propoxyphene Screen Acetaminophen Ur Barbiturates Screen Ur Tricyclics Screen Ur Phencyclidine Scrn Ur Amphetamine Screen U Methamphetamines Scrn U Benzodiazepines Scrn Urine Cocaine Screen U Cannabinoids Screen Ethyl Alcohol 48.5 PD MEDICAL DECISION MAKING - ED course ED course: Care was turned over to me to follow-up after evaluation by the social work faculty member or crisis screener. The patient was no longer intoxicated. She was seen by the social work faculty member at length andSocial worker interviewed both the patient and the patient's mother whom she lives with. They have agreed on a safety plan and the social work faculty member feels strongly that her suicidal thoughts were related to her alcohol consumption last night. Patient herself says that she is no longer feeling suicidal. She feels safe going home. She has outpatient mental health follow-up in place.Mom has agreed to come to the emergency department and collect the patient.
[2019-06-09 01:07] LABS: MUDS CUTOFF CONCENTRATIONS CUTOFF CONC BELOW:
[2019-06-09 01:10] LABS: BILIRUBIN,URINE NEGATIVE (NEGATIVE); GLUCOSE, URINE (UA) NEGATIVE (NEGATIVE); KETONES,URINE (UA) NEGATIVE (NEGATIVE); LEUKOCYTE ESTERASE, URINE NEGATIVE (NEGATIVE); NITRITE,URINE NEGATIVE (NEGATIVE); OCCULT BLOOD,URINE NEGATIVE (NEGATIVE); PROTEIN,URINE NEGATIVE (NEGATIVE); UROBILINOGEN,URINE 0.2 (NORMAL) E.U./dL (NORMAL)
[2019-06-09 01:11] LABS: CLARITY,URINE CLEAR (CLEAR); HCG UR QUAL NEGATIVE
[2019-06-09 01:24] LABS: AMPHETAMINE SCREEN,URINE NEGATIVE (NEGATIVE); BENZODIAZEPINES SCREEN, URINE NEGATIVE (NEGATIVE); COCAINE SCREEN URINE NEGATIVE (NEGATIVE); METHADONE SCREEN, URINE NEGATIVE (NEGATIVE); METHAMPHETAMINES SCREEN, URINE NEGATIVE (NEGATIVE); OPIATE SCREEN, URINE NEGATIVE (NEGATIVE); OXYCODONE SCREEN, URINE NEGATIVE (NEGATIVE); PROPOXYPHENE SCREEN, URINE NEGATIVE (NEGATIVE); TRICYCLIC ANTIDEPRESSANT,URINE NEGATIVE (NEGATIVE)
[2019-06-09 01:54] LABS: BASOPHILS # (AUTO) 0.1 10^3/uL (0.0-0.1); BASOPHILS % (AUTO) 1.1 %; EOSINOPHILS # (AUTO) 0.1 10^3/uL (0.0-0.7); EOSINOPHILS % (AUTO) 1.7 %; LYMPHOCYTES # (AUTO) 2.1 10^3/uL (1.5-3.5); MEAN CORPUSCULAR HEMOGLOBIN 27.5 pg (27.0-31.0); MEAN CORPUSCULAR HGB CONC 32.1 g/dL (32.0-36.0); MEAN CORPUSCULAR VOLUME 85.6 fL (81.0-99.0); MEAN PLATELET VOLUME 9.8 fL (7.9-10.8); MONOCYTES # (AUTO) 0.5 10^3/uL (0.0-1.0); MONOCYTES % (AUTO) 7.3 %; NEUTROPHILS # (AUTO) 4.3 10^3/uL (1.5-6.6); NEUTROPHILS % (AUTO) 60.5 %; PLT - PLATELET COUNT 386 10^3/uL (130-450); RED BLOOD COUNT 4.73 10^6/uL (4.20-5.40); RED CELL DISTRIBUTION WIDTH 15.5 % (12.0-15.0); WHITE BLOOD COUNT 7.1 x10^3/uL (4.8-10.8)
[2019-06-09 02:06] LABS: ACETAMINOPHEN < 10 ug/mL (10-30); ALBUMIN 4.4 g/dL (3.2-5.5); ALBUMIN/GLOBULIN RATIO 1.5 (1.0-2.2); ALKALINE PHOSPHATASE 64 IU/L (42-121); ALT ALANINE AMINOTRANSFERASE 27 IU/L (10-60); AST ASPARTATE AMINOTRANSFERASE 28 IU/L (10-42); BILIRUBIN,TOTAL 0.6 mg/dL (0.2-1.0); BUN - BLOOD UREA NITROGEN 9 mg/dL (6-20); CARBON DIOXIDE - CO2 24 mmol/L (21-32); CHLORIDE 105 mmol/L (101-111); CREATININE 0.7 mg/dL (0.4-1.0); GLUCOSE 98 mg/dL (70-100); LIPASE 27 U/L (22-51); SALICYLATE < 6.0 mg/dL; SODIUM 143 mmol/L (135-145); TOTAL PROTEIN 7.3 g/dL (6.7-8.2)
[2019-06-09 13:45] VITALS: BP 149/91
== END 2019-06-09 16:19 | disposition home or self-care (01) ==
LOC: EDUNIT# → ED 00:26
DX: R45.851 Suicidal ideations (principal); F10.129 Alcohol abuse with intoxication, unspecified; E11.9 Type 2 diabetes mellitus without complications; F17.200 Nicotine dependence, unspecified, uncomplicated; Z79.4 Long term (current) use of insulin
CPT/HCPCS: 36415; 80048; 80053; 80306; 80307; 80320; 80329; 81001; 81003; 81025; 83690; 84443; 85025; 87086; 93005; 99281; 99284

== ENCOUNTER 2019-06-13 10:49 | Outpatient (CLI) | payer MEDICAID ==
--- NOTE | 2019-06-14 10:07 | XRAY Report ---
Reason: TOE PAIN,RT Procedure Date: 06/13/2019 Accession Number: [id number] / [id number] Procedure: XR - Toe(s) RT CPT Code: Final Report FULL RESULT: EXAM: RIGHT TOE RADIOGRAPHY EXAM DATE: 06/13/2019 11:00 AM. CLINICAL HISTORY: Right fourth toe pain. Stubbed 3 weeks ago. COMPARISON: None. TECHNIQUE: 3 views. FINDINGS: Bones: There is an oblique, extra-articular fracture of the neck of the fourth proximal phalanx with mild lateral displacement. Joints: Normal. No subluxations. Soft Tissues: Normal. No soft tissue swelling. IMPRESSION: Fracture of the proximal phalanx of the fourth digit. RADIA
== END 2019-06-13 10:50 | disposition home or self-care (01) ==
LOC: DI 10:49
PROVIDERS: ATTEND Physician Assistant
DX: S92.511A Displaced fracture of proximal phalanx of right lesser toe(s), initial encounter for closed fracture (principal)
CPT/HCPCS: 73660

== ENCOUNTER 2019-08-08 14:39 | Outpatient (CLI) | payer MEDICAID ==
[2019-08-08 15:00] LABS: CALCIUM 9.1 mg/dL (8.5-10.3); CREATININE 0.6 mg/dL (0.4-1.0)
[2019-08-08 15:08] LABS: CREATININE,URINE 158.5 mg/dL; MICROALBUM/CREATININE RATIO,UR 8.2 ug/mg (<30.0); MICROALBUMIN,URINE 1.3 mg/dL (0-300.0)
[2019-08-08 15:24] LABS: HB2 TOTAL 13.6 g/dL; HEMOGLOBIN A1C 0.71 g/dL; HEMOGLOBIN A1C % 6.9 % (4.6-6.2)
== END 2019-08-08 14:40 | disposition home or self-care (01) ==
LOC: LAB 14:39
PROVIDERS: ATTEND Registered Nurse
DX: E11.9 Type 2 diabetes mellitus without complications (principal)
CPT/HCPCS: 36415; 80048; 82043; 82570; 83036

== ENCOUNTER 2020-01-13 14:18 | Outpatient (CLI) | payer MEDICAID ==
[2020-01-13 20:07] LABS: CALCIUM 9.4 mg/dL (8.5-10.3); CREATININE 0.7 mg/dL (0.4-1.0)
[2020-01-13 20:14] LABS: CREATININE,URINE 61.7 mg/dL; MICROALBUM/CREATININE RATIO,UR 9.7 ug/mg (<30.0); MICROALBUMIN,URINE 0.6 mg/dL (0-300.0)
[2020-01-13 20:19] LABS: HEMOGLOBIN A1c% 6.4 % (4.27-6.07)
== END 2020-01-13 14:19 | disposition home or self-care (01) ==
LOC: LAB.S 14:18
PROVIDERS: ATTEND Physician Assistant
DX: E16.2 Hypoglycemia, unspecified (principal); E11.9 Type 2 diabetes mellitus without complications; E78.5 Hyperlipidemia, unspecified
CPT/HCPCS: 36415; 80048; 82043; 82570; 83036

== ENCOUNTER 2020-05-27 10:50 | Outpatient (CLI) | payer MEDICAID ==
[2020-05-27 17:03] LABS: CALCIUM 9.3 mg/dL (8.5-10.3); CREATININE 0.8 mg/dL (0.4-1.0)
[2020-05-27 17:31] LABS: MICROALBUM/CREATININE RATIO,UR 4.9 ug/mg (<30.0); MICROALBUMIN,URINE 0.4 mg/dL (0-300.0)
[2020-05-27 20:21] LABS: ESTIMATED AVERAGE GLUCOSE 143 mg/dL (70-100); HEMOGLOBIN A1c% 6.6 % (4.27-6.07)
== END 2020-05-27 10:51 | disposition home or self-care (01) ==
LOC: LAB.S 10:50
PROVIDERS: ATTEND Physician Assistant
DX: E11.9 Type 2 diabetes mellitus without complications (principal)
CPT/HCPCS: 36415; 80048; 82043; 82570; 83036

== ENCOUNTER 2020-06-18 23:31 | Emergency (ER) | payer MEDICAID ==
[2020-06-19 00:03] VITALS: BP 90/61
== END 2020-06-19 00:03 | disposition left against medical advice (07) ==
LOC: ED 23:31
DX: Z53.21 Procedure and treatment not carried out due to patient leaving prior to being seen by health care provider (principal)

== ENCOUNTER 2020-07-06 15:09 | Outpatient (CLI) | payer MEDICAID ==
[2020-07-06 15:54] LABS: BASOPHILS # (AUTO) 0.1 10^3/uL (0.0-0.1); BASOPHILS % (AUTO) 1.1 %; EOSINOPHILS # (AUTO) 0.2 10^3/uL (0.0-0.7); EOSINOPHILS % (AUTO) 3.1 %; HCT - HEMATOCRIT 39.5 % (37.0-47.0); HGB - HEMOGLOBIN 12.7 g/dL (12.0-16.0); LYMPHOCYTES # (AUTO) 1.9 10^3/uL (1.5-3.5); LYMPHOCYTES % (AUTO) 27.7 %; MEAN CORPUSCULAR HGB CONC 32.2 g/dL (32.0-36.0); MEAN CORPUSCULAR VOLUME 93.4 fL (81.0-99.0); MEAN PLATELET VOLUME 9.4 fL (7.9-10.8); MONOCYTES # (AUTO) 0.6 10^3/uL (0.0-1.0); NEUTROPHILS # (AUTO) 4.1 10^3/uL (1.5-6.6); NEUTROPHILS % (AUTO) 58.8 %; PLT - PLATELET COUNT 346 10^3/uL (130-450); RED BLOOD COUNT 4.23 10^6/uL (4.20-5.40)
[2020-07-06 16:06] LABS: ALBUMIN 4.2 g/dL (3.2-5.5); ALBUMIN/GLOBULIN RATIO 1.5 (1.0-2.2); BILIRUBIN,TOTAL 0.2 mg/dL (0.2-1.0); CALCIUM 9.3 mg/dL (8.5-10.3); CREATININE 0.4 mg/dL (0.4-1.0); POTASSIUM 3.9 mmol/L (3.5-5.0)
[2020-07-06 16:22] LABS: BILIRUBIN,URINE NEGATIVE (NEGATIVE); CLARITY,URINE CLEAR (CLEAR); GLUCOSE, URINE (UA) NEGATIVE (NEGATIVE); KETONES,URINE (UA) TRACE mg/dL (NEGATIVE); LEUKOCYTE ESTERASE, URINE NEGATIVE (NEGATIVE); NITRITE,URINE NEGATIVE (NEGATIVE); OCCULT BLOOD,URINE NEGATIVE (NEGATIVE); PH,URINE 5.5 PH (5.0-7.5); PROTEIN,URINE NEGATIVE (NEGATIVE); UROBILINOGEN,URINE 0.2 (NORMAL) E.U./dL (NORMAL)
[2020-07-06 16:32] LABS: BACTERIA,URINE None Seen /HPF (None Seen); CRYSTALS,URINE 3-5 Calcium Oxalate /LPF; RBC,URINE None Seen /HPF (0-5); SQUAMOUS EPITHELIAL CELL,UR FEW Squamous (<= Few); WBC,URINE 0-3 /HPF (0-5)
[2020-07-06 19:47] LABS: ESTIMATED AVERAGE GLUCOSE 143 mg/dL (70-100); HEMOGLOBIN A1c% 6.6 % (4.27-6.07)
== END 2020-07-06 15:10 | disposition home or self-care (01) ==
LOC: LAB 15:09
PROVIDERS: ATTEND Physician Assistant
DX: I10 Essential (primary) hypertension (principal); R10.11 Right upper quadrant pain; R10.13 Epigastric pain; E11.9 Type 2 diabetes mellitus without complications; E78.5 Hyperlipidemia, unspecified; K44.9 Diaphragmatic hernia without obstruction or gangrene
CPT/HCPCS: 36415; 80053; 81001; 82150; 83036; 83690; 85025; 87086

== ENCOUNTER 2020-07-19 08:03 | Outpatient (CLI) | payer MEDICAID ==
--- NOTE | 2020-07-19 11:40 | Ultrasound Report ---
PROCEDURE: Abdomen Limited INDICATIONS: RUQ ABD PAIN TECHNIQUE: Real-time focused scanning was performed of the abdomen, with image documentation. COMPARISON: Abdominal ultrasound 08/06/2017 FINDINGS: Limited study at clinician request. The liver is echogenic consistent with fatty infiltrat ion but normal in size. No intrahepatic biliary distention is found. No mass lesion seen. The gallbla dder appears normal as does the common duct distally which measures 5.3 mm. The pancreas visualized a ppears normal. Right kidney was assessed and appears normal. IMPRESSION: Limited right upper quadrant assessment, fatty infiltration throughout the liver is seen but ascites, or portal vein a definite source of right upper quadrant pain otherwise is not found. Reviewed by: Zeus Gibson MD on 07/19/2020 11:38 AM PDT Approved by: Zeus Gibson MD on 07/19/2020 11:38 AM PDT Station ID: [id number]
== END 2020-07-19 08:04 | disposition home or self-care (01) ==
LOC: DI 08:03
PROVIDERS: ATTEND Physician Assistant
DX: K76.0 Fatty (change of) liver, not elsewhere classified (principal)

== ENCOUNTER 2021-01-13 10:01 | Outpatient (CLI) | payer MEDICAID ==
[2021-01-13 20:09] LABS: ESTIMATED AVERAGE GLUCOSE 194 mg/dL (70-100); HEMOGLOBIN A1c% 8.4 % (4.27-6.07)
== END 2021-01-13 10:02 | disposition home or self-care (01) ==
LOC: LAB.S 10:01
PROVIDERS: ATTEND Registered Nurse
DX: E11.9 Type 2 diabetes mellitus without complications (principal)
CPT/HCPCS: 36415; 83036

== ENCOUNTER 2021-05-28 10:32 | Outpatient (CLI) | payer MEDICAID, BC ==
[2021-05-28 17:09] LABS: CREATININE,URINE 124.3 mg/dL; MICROALBUMIN,URINE 0.5 mg/dL (0-300.0)
[2021-05-28 19:28] LABS: ESTIMATED AVERAGE GLUCOSE 183 mg/dL (70-100)
== END 2021-05-28 10:33 | disposition home or self-care (01) ==
LOC: LAB.S 10:32
PROVIDERS: ATTEND Registered Nurse
DX: E11.9 Type 2 diabetes mellitus without complications (principal)
CPT/HCPCS: 36415; 82043; 82570; 83036

== ENCOUNTER 2021-08-30 15:10 | Emergency (ER) | payer BC, MEDICAID ==
--- NOTE | 2021-08-30 15:52 | XRAY Report ---
PROCEDURE: Chest 1 View X-Ray INDICATIONS: Chest Pain TECHNIQUE: One view of the chest was acquired. COMPARISON: Chest x-ray 05/10/2019 FINDINGS: Surgical changes and devices: None. Lungs and pleura: No pleural effusions or pneumothorax. Lungs are clear. Mediastinum: Mediastinal contours appear normal. Heart size is normal. Bones and chest wall: No suspicious bony lesions. Overlying soft tissues appear unremarkable. IMPRESSION: No acute pulmonary process. Reviewed by: Jennifer Valladares MD on 08/30/2021 3:51 PM PDT Approved by: Jennifer Valladares MD on 08/30/2021 3:51 PM PDT Station ID: [id number]
[2021-08-30 15:55] LABS: BASOPHILS # (AUTO) 0.1 10^3/uL (0.0-0.1); BASOPHILS % (AUTO) 0.8 %; EOSINOPHILS # (AUTO) 0.2 10^3/uL (0.0-0.7); EOSINOPHILS % (AUTO) 3.1 %; HCT - HEMATOCRIT 37.7 % (37.0-47.0); HGB - HEMOGLOBIN 12.3 g/dL (12.0-16.0); LYMPHOCYTES # (AUTO) 2.3 10^3/uL (1.5-3.5); LYMPHOCYTES % (AUTO) 29.3 %; MEAN CORPUSCULAR HGB CONC 32.6 g/dL (32.0-36.0); MEAN CORPUSCULAR VOLUME 88.9 fL (81.0-99.0); MEAN PLATELET VOLUME 10.4 fL (7.9-10.8); MONOCYTES # (AUTO) 0.6 10^3/uL (0.0-1.0); MONOCYTES % (AUTO) 7.6 %; NEUTROPHILS # (AUTO) 4.6 10^3/uL (1.5-6.6); NEUTROPHILS % (AUTO) 58.9 %; PLT - PLATELET COUNT 329 10^3/uL (130-450); RED BLOOD COUNT 4.24 10^6/uL (4.20-5.40); WHITE BLOOD COUNT 7.7 x10^3/uL (4.8-10.8)
[2021-08-30 16:15] LABS: ALBUMIN 4.3 g/dL (3.2-5.5); ALBUMIN/GLOBULIN RATIO 1.4 (1.0-2.2); BILIRUBIN,TOTAL 0.4 mg/dL (0.2-1.0); CALCIUM 9.6 mg/dL (8.5-10.3); CREATININE 0.6 mg/dL (0.4-1.0); TOTAL PROTEIN 7.3 g/dL (6.7-8.2)
--- NOTE | 2021-08-30 16:46 | ED Physician Documentation ---
History of Present Illness - Stated complaint Stated Complaint: LT ARM PAIN.NOT FEELING WELL - Chief complaint Chief Complaint: General - Additonal information Additional information: 51-year-old female who has a history of hypertension, diabetes and fibromyalgia presents the emergency department for evaluation of feeling generally unwell for the last 2 to 3 days. She states that every muscle in her body aches. She felt that she was dehydrated so she has been drinking a lot of water but does not feel that it is helping. Her blood glucose at home has been in the 130-150 range. Patient typically is on Lyrica denies missing any doses. Because of the body ache she has been drinking extra water without relief of symptoms. This afternoon she began to feel a pressure in her left arm which is what prompted the ER visit for concerns of ACS. She denies chest pain or dyspnea. She continues to have left arm pain Review of Systems Constitutional: reports: Myalgias. denies: Fever, Chills Eyes: reports: Reviewed and negative Nose: reports: Reviewed and negative Throat: reports: Reviewed and negative Cardiac: denies: Chest pain / pressure, Palpitations Respiratory: reports: Reviewed and negative GI: denies: Nausea, Vomiting, Diarrhea : reports: Reviewed and negative Skin: reports: Reviewed and negative Musculoskeletal: reports: Reviewed and negative PD PAST MEDICAL HISTORY - Past Medical History Past Medical History: Yes Cardiovascular: Hypertension Respiratory: Asthma Neuro: None Endocrine/Autoimmune: Type 2 diabetes GI: None, Other ADMIN SECRETARY: None : Incontinence, Nocturia HEENT: None Psych: Depression, Anxiety Musculoskeletal: Fibromyalgia Derm: None - Past Surgical History Past Surgical History: Yes General: Appendectomy - Present Medications Home Medications: Ambulatory Orders Medication Instructions Recorded Confirmed Clonazepam 1 mg PO TID 09/28/12 01/15/17 Divalproex Sodium [Depakote] 500 mg PO BID 05/22/14 01/15/17 Venlafaxine [Effexor] 500 mg PO BID 11/10/14 01/15/17 Omeprazole 20 mg PO DAILY 01/15/17 01/15/17 metFORMIN [Glucophage] 500 mg PO BID 01/15/17 01/15/17 Insulin Glargine [Lantus Solostar] 20 unit SUBQ QDBREAKFAST 07/23/17 07/23/17 Pregabalin [Lyrica] 1 tab PO TID 12/07/17 12/07/17 Albuterol 2.5 mg INH Q4H PRN #30 neb 05/10/19 Azithromycin [Zithromax] 250 mg PO DAILY #6 tablet 05/10/19 Fluconazole [Diflucan] 150 mg PO ONCE #1 tablet 05/10/19 predniSONE [Deltasone] 10 mg PO ONCE #26 tablet 05/10/19 - Allergies Allergies/Adverse Reactions: Allergies Allergy/AdvReac Type Severity Reaction Status Date / Time tramadol Allergy Mild itch Verified 08/30/21 15:15 - Social History Does the pt smoke?: Yes Smoking Status: Current every day smoker Does the pt drink ETOH?: Yes Does the pt have substance abuse?: Yes Substance Use and Type: CBD oil / Products - Immunizations Immunizations are current?: Yes Immunizations: TDAP >10years/unknown - POLST Patient has POLST: No PD ED PE NORMAL - General General: Alert and oriented X 3, No acute distress, Well developed/nourished - HEENT HEENT: Atraumatic, Moist mucous membranes, Pharynx benign - Neck Neck: Supple, no meningeal sign, No adenopathy - Cardiac Cardiac: RRR, No murmur, No gallop - Respiratory Respiratory: No respiratory distress, Clear bilaterally - Abdomen Abdomen: Normal bowel sounds, Soft, Non tender - Derm Derm: Normal color, Warm and dry, No rash - Extremities Extremities: No deformity - Neuro Neuro: Alert and oriented X 3, patient account specialist 2-12 intact Eye Opening: Spontaneous Motor: Obeys Commands Verbal: Oriented GCS Score: 15 Results - Vitals Vitals: Vital Signs - 24 hr 08/30/21 08/30/21 08/30/21 15:15 16:33 17:58 Temperature 36.5 C 36.6 C Heart Rate 95 78 78 Respiratory 18 16 14 Rate Blood Pressure 144/83 H 109/62 119/68 O2 Saturation 97 100 98 Oxygen O2 Source Room air - EKG (time done) 1526 Rate: Rate (enter#) (87) Rhythm: NSR [place]: Normal Intervals: Normal [place] QRS: Normal Ischemia: Normal ST segments Compare to prior EKG: Old EKG unavailable Computer interpretation: Agree with computer - Labs Labs: Laboratory Tests 08/30/21 08/30/21 08/30/21 15:40 15:40 15:40 WBC 7.7 RBC 4.24 Hgb 12.3 Hct 37.7 MCV 88.9 MCH 29.0 MCHC 32.6 RDW 14.0 Plt Count 329 MPV 10.4 Neut # (Auto) 4.6 Lymph # (Auto) 2.3 [place] # (Auto) 0.6 Eos # (Auto) 0.2 Baso # (Auto) 0.1 Absolute Nucleated RBC 0.00 Nucleated RBC % 0.0 Sodium 138 Potassium 4.0 Chloride 102 Carbon Dioxide 27 Anion Gap 9.0 BUN 16 Creatinine 0.6 Estimated GFR (MDRD) 106 Glucose 116 H Calcium 9.6 Total Bilirubin 0.4 AST 24 ALT 32 Alkaline Phosphatase 68 Total Creatine Kinase Troponin I High Sens 2.9 Total Protein 7.3 Albumin 4.3 Globulin 3.0 Albumin/Globulin Ratio 1.4 Lipase 32 Nasal Adenovirus (PCR) Nasal B. parapertussis DNA (PCR) Nasal Coronavir 229E PCR Nasal Coronavir HKU1 PCR Nasal Coronavir NL63 PCR Nasal Coronavir OC43 PCR Nasal Enterovir/Rhinovir PCR Nasal Influenza B PCR Nasal Influenza A PCR Nasal Parainfluen 1 PCR Nasal Parainfluen 2 PCR Nasal Parainfluen 3 PCR Nasal Parainfluen 4 PCR Nasal RSV (PCR) Nasal B.pertussis DNA PCR Nasal C.pneumoniae (PCR) Tony Human Metapneumo PCR Nasal M.pneumoniae (PCR) Nasal SARS-CoV-2 (PCR) 08/30/21 08/30/21 15:40 17:03 WBC RBC Hgb Hct MCV MCH MCHC RDW Plt Count MPV Neut # (Auto) Lymph # (Auto) [place] # (Auto) Eos # (Auto) Baso # (Auto) Absolute Nucleated RBC Nucleated RBC % Sodium Potassium Chloride Carbon Dioxide Anion Gap BUN Creatinine Estimated GFR (MDRD) Glucose Calcium Total Bilirubin AST ALT Alkaline Phosphatase Total Creatine Kinase 251 Troponin I High Sens Total Protein Albumin Globulin Albumin/Globulin Ratio Lipase Nasal Adenovirus (PCR) NOT DETECTED Nasal B. parapertussis DNA (PCR) NOT DETECTED Nasal Coronavir 229E PCR NOT DETECTED Nasal Coronavir HKU1 PCR NOT DETECTED Nasal Coronavir NL63 PCR NOT DETECTED Nasal Coronavir OC43 PCR NOT DETECTED Nasal Enterovir/Rhinovir PCR NOT DETECTED Nasal Influenza B PCR NOT DETECTED Nasal Influenza A PCR NOT DETECTED Nasal Parainfluen 1 PCR NOT DETECTED Nasal Parainfluen 2 PCR NOT DETECTED Nasal Parainfluen 3 PCR NOT DETECTED Nasal Parainfluen 4 PCR NOT DETECTED Nasal RSV (PCR) NOT DETECTED Nasal B.pertussis DNA PCR NOT DETECTED Nasal C.pneumoniae (PCR) NOT DETECTED Tony Human Metapneumo PCR NOT DETECTED Nasal M.pneumoniae (PCR) NOT DETECTED Nasal SARS-CoV-2 (PCR) NOT DETECTED - Rads (name of study) cxr Radiology: Final report received (No acute cardiopulmonary process) PD MEDICAL DECISION MAKING - ED course Complexity details: reviewed results, re-evaluated patient, d/w patient ED course: 51-year-old female presents to the emergency department for evaluation of diffuse body aches. With worsening pain in her left arm. She denies chest pain or shortness of air. She does have a history of diabetes hypertension and fibromyalgia. She denies any falls or trauma. No hematuria. Her screening EKG and troponin are essentially negative. Chest x-ray is without acute focal findings. Screening labs showed normal renal function. A CK is not elevated. I suspect she likely has a fibromyalgia flare. Despite the lack of fever respiratory PCR panel is pending as recently we seem to have diffuse body aches in the setting of COVID-19. Patient was given a liter of IV fluids as she felt that she was dehydrated though she clinically does not have a reason for dehydration. Patient is discharged home in stable condition. Some of the body aches improved after receiving ketorolac. Emergent return precautions were discussed for worsening symptoms 1954: Respiratory PCR panel is negative Departure - Departure Disposition: 01 Home, Self Care Clinical Impression: Myalgia Condition: Stable Record reviewed to determine appropriate education?: Yes Comments: Trish you are seen today in the emergency department because you have generalized body aches. Reported all your muscles are sore. This is a clinical term called myalgia. It is possible that you are experiencing a flare of your fibromyalgia. Here in the emergency department we did give you an IV dose of medication called Toradol. This is like ibuprofen in injection form. I encourage you to continue to take your Lyrica at home but supplement with medications like Tylenol or ibuprofen. Your screening chest x-ray, EKG and labs are all essentially normal. We are running a respiratory panel to check for different viruses. Sometimes a simple viral illness can cause diffuse body aches. I encourage you to continue all your other routine medications. Return to the ER for fevers, sudden severe chest pain or shortness of air. Discharge Date/Time: 08/30/21 18:21
[2021-08-30] MEDS ORDERED: SODIUM CHLORIDE 0.9% 1,000 ML IV STA (16:47)
[2021-08-30] MEDS ORDERED: KETOROLAC 30 MG/ML VIAL IVP STA (17:33)
[2021-08-30 17:59] VITALS: BP 119/68
[2021-08-30 18:08] LABS: B. PARAPERTUSSIS- RESP PCR PAN NOT DETECTED; B. PERTUSSIS- RESP PCR PANEL NOT DETECTED; C. PNEUMONIAE- RESP PCR PANEL NOT DETECTED; CORONAVIRUS 229E-RESP PCR NOT DETECTED; CORONAVIRUS HKU1-RESP PCR NOT DETECTED; CORONAVIRUS NL63-RESP PCR NOT DETECTED; CORONAVIRUS OC43-RESP PCR NOT DETECTED; HUMAN METAPNEUMOVIRUS NOT DETECTED; INFLUENZA A- RESP PCR PANEL NOT DETECTED; INFLUENZA B - RESP PCR PANEL NOT DETECTED; M. PNEUMONIAE- RESP PCR PANEL NOT DETECTED; PARAINFLUENZA VIRUS 1 NOT DETECTED; PARAINFLUENZA VIRUS 2 NOT DETECTED; PARAINFLUENZA VIRUS 3 NOT DETECTED; PARAINFLUENZA VIRUS 4 NOT DETECTED; RHINOVIRUS/ENTEROVIRUS NOT DETECTED; RSV- RESP PCR PANEL NOT DETECTED; SARS-CoV-2 -RESP PCR PANEL NOT DETECTED
== END 2021-08-30 18:21 | disposition home or self-care (01) ==
LOC: ED 15:10
DX: M79.10 Myalgia, unspecified site (principal); F17.200 Nicotine dependence, unspecified, uncomplicated; Z20.822 Contact with and (suspected) exposure to COVID-19
CPT/HCPCS: 36415; 80053; 82550; 83690; 84484; 85025; 87633; 93005; 96374; 99284

== ENCOUNTER 2022-02-22 07:50 | Outpatient (CLI) | payer OTHER ==
--- NOTE | 2022-02-23 09:59 | Mammography Report ---
BILATERAL DIGITAL DIAGNOSTIC MAMMOGRAM 3D/2D WITH SPOT COMPRESSION: 02/22/2022 CLINICAL: Palpable left breast lump. Comparison is made to exam dated: 08/09/2015 mammogram - [facility]. Both breasts are heterogeneously dense, which may obscure small masses (category c / 51-75% glandular tissue). There is a 0.7 cm oval focal asymmetry with an obscured and circumscribed margin in the left breast a t 12 o'clock middle depth. No mass seen at the left breast palpable site. Benign calcifications in both breasts. No other significant masses, calcifications, or other findings are seen in either breast. IMPRESSION: INCOMPLETE: NEEDS ADDITIONAL IMAGING EVALUATION The 0.7 cm oval focal asymmetry in the left breast resembles a cyst and is indeterminate. No mass seen at the left breast palpable site. A targeted ultrasound is recommended and will immediately follow. Based on the Tyrer Cuzick model (a risk assessment model) the patients lifetime risk is 14.3% and he r 10 year risk is 3.4%. According to the ACR, ACS, and NCCN guidelines, an annual breast MRI exam mansi ng with mammogram is recommended if the patients lifetime risk is 20% or greater. This exam was interpreted at Station ID: [id number]. NOTE: For mammograms, a report in lay terms will be sent to the patient. Approximately 15% of breast malignancies will not be visualized mammographically. In the management of a palpable breast mass, a negative mammogram must not discourage biopsy of a clinically suspicious lesion. Electronically Signed By: Robert Boothe M.D. slc/:02/22/2022 09:07:28 ACR BI-RADS Category 0: Incomplete 3340F PARENCHYMAL PATTERN: (D) - The breast(s) demonstrate(s) heterogeneously dense fibroglandular parkhadijah ruggiero. BI-RADS CATEGORY: (0) - 0 Ultrasound [id number] Immediate follow-up LATERALITY: (B)
--- NOTE | 2022-02-23 09:59 | Ultrasound Report ---
LIMITED ULTRASOUND OF LEFT BREAST: 02/22/2022 CLINICAL: Patient returns today to evaluate a focal asymmetry in the left breast. Comparison is made to exams dated: 02/22/2022 mammogram and 08/09/2015 mammogram - [facility]. Color flow and real-time ultrasound of the left breast 9-12 o'clock region were performed. Valero scal e images of the real-time examination were reviewed. There is a benign 0.6 cm x 0.4 cm x 0.2 cm oval simple cyst in the left breast at 12 o'clock middle d epth 6 cm from the nipple. This oval simple cyst is anechoic. This correlates with mammography find ings. Color flow imaging demonstrates that there is no vascularity present. No mass at the palpable site. IMPRESSION: BENIGN There is no sonographic evidence of malignancy. The 0.6 cm simple cyst in the left breast is benign. No mass in the region of the palpable abnormality at the deep medial breast. Exam findings were conveyed to the patient. Patient is advised to monitor for significant change. Cli nical follow-up as needed. A 1 year screening mammogram is recommended. This exam was interpreted at Station ID: [id number]. Electronically Signed By: Robert Boothe M.D. slc/:02/22/2022 10:42:31 Ultrasound BI-RADS: 2 Benign BI-RADS CATEGORY: (2) - 2 RECOMMENDATION: (ANNUAL) - Recommend routine annual screening mammography. [id number] 1 year screening LATERALITY: (B)
== END 2022-02-22 07:51 | disposition home or self-care (01) ==
LOC: DI 07:50
PROVIDERS: ATTEND Nurse Practitioner Family
DX: N60.02 Solitary cyst of left breast (principal)

== ENCOUNTER 2023-11-08 06:01 | Outpatient (CLI) | payer BC ==
[2023-11-08] MEDS ORDERED: iohexoL-300 100 ML VIAL ONE (06:33)
[2023-11-08 06:43] LABS: CREATININE 0.6 mg/dL (0.6-1.3)
[2023-11-08] MEDS: iohexoL-300 100 ML VIAL IVP ONE (08:04)
--- NOTE | 2023-11-08 18:36 | CT Report ---
PROCEDURE: Soft Tissue Neck W INDICATIONS: NECK MASS CONTRAST: Omni 300 100ml TECHNIQUE: After the administration of intravenous contrast, 3.0 mm axial sections acquired from the sella to th e aortic arch. Additional oblique axial 3.0 mm sections acquired through the pharynx. 3 mm thick co ledy reformats were generated. For radiation dose reduction, the following was used: automated exp osure control, adjustment of mA and/or kV according to patient size. COMPARISON: None. FINDINGS: Image quality: Excellent. Lymph nodes: No enlarged lymph nodes seen throughout the neck. Vessels: Visualized vasculature appears patent. 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 Neck spaces: The oropharynx, nasopharynx, and pharynx demonstrate no mucosal lesions. The vocal cor ds, false vocal cords, pyriform sinuses, epiglottis, vallecula, and tongue base all appear normal. E xtramucosal spaces appear unremarkable. Glands: The parotid and submandibular glands appear normal. The thyroid is normal in size and there are no incidental findings. Miscellaneous: Visualized brain and orbits appear normal. Lung apices appear clear. Superficial so ft tissues appear normal. Bones: No suspicious bony lesions. Visualized sinuses and mastoids appear unremarkable. IMPRESSION: No neck masses or enlarged lymph nodes are detected. Reviewed by: Bogdan Mcnair MD on 11/08/2023 5:35 PM KIT Approved by: Bogdan Mcnair MD on 11/08/2023 5:35 PM KIT Station ID: [id number]
== END 2023-11-08 06:02 | disposition home or self-care (01) ==
LOC: LAB 06:01
PROVIDERS: ATTEND Otolaryngology
DX: R22.1 Localized swelling, mass and lump, neck (principal)
CPT/HCPCS: 36415; 70491; 82565; Q9967